=== PATIENT | female | born 1950 | race Caucasian/White ===

== ENCOUNTER → 2023-11-13 15:46 | Outpatient (REF) | payer MEDICARE, OTHER, SELFPAY ==
[2023-11-13 17:04] LABS: Blood Urea Nitrogen 17 mg/dl (7-17); eGFR > 60.00
== END ==
LOC: REG 15:46
PROVIDERS: ATTENDING PHYSICIAN Otolaryngology; FAMILY PHYSICIAN Family Medicine
DX: Z01.818 Encounter for other preprocedural examination (principal)
CPT/HCPCS: 36415; 82565; 84520

== ENCOUNTER → 2023-11-19 11:21 | Outpatient (REF) | payer MEDICARE, OTHER, SELFPAY | LOC: PAVMRI 11:21 | PROVIDERS: ATTENDING PHYSICIAN Otolaryngology; FAMILY PHYSICIAN Family Medicine | DX: R42 Dizziness and giddiness (principal) | CPT/HCPCS: 70553; A9575 ==

== ENCOUNTER 2024-04-30 11:51 | Emergency (ER) | payer MEDICARE, OTHER, SELFPAY ==
[2024-04-30 11:55] VITALS: BP 133/79
[2024-04-30 12:18] VITALS: BMI 24.5
--- NOTE | 2024-04-30 12:27 | ED.GENMED ---
History of Present Illness
General
Chief Complaint: Abdominal Pain
Source: patient
Exam Limitations: none
Time Seen by Provider: 04/30/24 12:17
Nursing documentation reviewed up to this point in time: agreed with
History of Present Illness
History of Present Illness:
73-year-old female with history hypertension, hyperlipidemia, diverticulitis presenting to the emergency department for evaluation of abdominal pain. Patient reports left lower quadrant abdominal pain for the past 8 days associated with generalized
bloating and diarrhea. Patient reports chills at home. No known fevers. Patient denies any nausea or vomiting. She has been adhering to a clear liquid diet over the past few days although pain continues to worsen. Patient denies any urinary
symptoms. Patient denies any hematochezia or melena. Patient denies any chest pain or shortness of breath.
Patient does have history of diverticulitis in the past and states this feels very similar. She has been seen by Dr. Jackson, GI.
Past History
Past History
ED Past Medical History: HTN and Other
ED Past Surgical History: Orthopedic (Cervical fusion)
Social History
Tobacco: Non-smoker
Alcohol: Occasional
Drug: None
Employment: Employed
Review of Systems
Review of Systems
Allergies reviewed?: Yes
All Other Systems: ROS reviewed and negative except as documented in HPI and ROS
Phy Exam
Physical Exam
Physical Exam:
Vitals: Patient's vital signs are stable. Afebrile
General: Patient is well appearing, no acute distress
Skin: Warm and dry, no rashes or lesions
Head: Normocephalic, atraumatic
Eyes: Sclera nonicteric. EOMs intact. No nystagmus.
Throat: Protecting airway
Neck: Normal ROM, no cervical spine tenderness, no meningismus
Cardiac: Regular rate and rhythm, no murmurs.
Pulm: Normal respiratory effort, no wheezes, rales, rhonchi heard on exam.
Abdomen: Abdomen soft. Diffuse abdominal tenderness, worse in left lower quadrant. No rebound tenderness or guarding. No CVA tenderness
Extremities: No evidence of cyanosis or edema. Great distal pulses
Neuro: AAOx3. No focal neurologic deficits
Psychiatric: Normal affect.
Course
Orders/Labs/Results
Orders:
Orders
04/30/24 12:47
0.9% Sodium Chloride 1000 ml [Nss] 1,000 ml IV BOLUS
04/30/24 12:48
CT Abd/Pel (IV only)-DH only Urgent
Comment: hx diverticulitis
Reason For Exam: LLQ pain, bloating, diarrhea
04/30/24 13:00
Complete Blood Count/With Diff Urgent
Comprehensive Metabolic Panel Urgent
Lipase Urgent
Urinalysis Reflex To Culture Urgent
Date Specimen was Collected: 04/30/24
Time Specimen was Collected: 12:59
04/30/24 15:47
LevoFLOXacin [Levaquin] 750 mg PO NOW STA
MetroNIDAZOLE [Flagyl] 500 mg PO NOW STA
Abnormal Lab Results
04/30/24
13:00
RBC 3.86 L 10^6/uL
(4.20-5.40)
MCH 33.2 H pg
(27.0-31.0)
Glucose 107 H mg/dl
(70-99)
Alkaline Phosphatase 145 H U/L
(38-126)
04/30/24 13:00
04/30/24 13:00
Vital Signs
Initial and Last Documented VS:
Initial Vital Signs
Temp Pulse Resp BP Pulse Ox
98.1 F 79 16 133/79 98
04/30/24 11:55 04/30/24 11:55 04/30/24 11:55 04/30/24 11:55 04/30/24 11:55
Last Documented Vital Signs
Temp Pulse Resp BP Pulse Ox
98.1 F 79 16 132/76 96
04/30/24 11:55 04/30/24 11:55 04/30/24 11:55 04/30/24 16:15 04/30/24 14:20
MDM/Problems Addressed
Differential Diagnosis Includes:
Not limited to: Diverticulitis, appendicitis, cholecystitis, UTI, pyelonephritis, kidney stone, etc.
MDM/Problems Addressed:
73-year-old female presenting with 8 days of lower abdominal discomfort and generalized bloating. Does have history of diverticulitis�states feels the same. Has had a few episodes of diarrhea, as well. Denies fevers, chills, nausea/vomiting,
urinary symptoms. Vital stable. Exam as above. Patient very well-appearing, conversational and nontoxic. She does have somewhat diffuse abdominal tenderness although worse in left lower quadrant. There is no rebound tenderness or guarding. No
CVA tenderness. cardio/pulmonary assessment unremarkable. Differential broad at this time other considerations include diverticulitis, appendicitis, gastritis, pyelonephritis, or UTI. Will check basic labs, lipase. Will check urinalysis. Will
obtain CT abdomen/pelvis. Patient denies any analgesia at this time.
Update: Into reassess patient at bedside. She remains comfortable and continues to decline analgesia. Labs noted. No leukocytosis. No other clinically significant abnormalities. Urine shows no evidence of infection. CT pending.
Update: CT report reviewed. There was findings of a pancolitis and mild acute diverticulitis. There is no evidence of abscess or perforation. There were a few incidental findings found most notably including a dilatation of the abdominal aorta
for which patient was made aware and given copy report to follow with primary care. Did offer patient admission for IV antibiotics versus discharge home on p.o. antibiotics. Patient would much prefer discharge home with p.o. antibiotics given
patient is tolerating p.o. intake, is afebrile, with no leukocytosis and is remained comfortable without pain management in the emergency department�feel trial of outpatient management with p.o. antibiotics is reasonable at this time. Patient
started on Levaquin/Flagyl for which she has taken before. Advised clear liquid diet followed by low fiber. Return precautions discussed with patient at length. She will return with any acute worsening/failure to improve. She will follow-up with
PCP/GI. Case discussed with attending physician.
Chronic conditions affecting care:
Diverticulosis
Acute Exacerbation and/or Progression of Chronic Illness:
Acute diverticulitis
*Radiology
Radiology exam reviewed: preliminary read by ED provider and radiology read reviewed
*Pulse Oximetry
Patient hypoxic: no
*EKG
Interpreted by ED Provider?: NA
*Tacker Elastic Band Interpretation
Rate: Tacker Elastic Band- N/A
*Critical Care Note
Total Time (30-74mins, 75-104mins- exclusive of procedures): Not Applicable
ED Attending Note
-
Portions of this chart may have been created with voice recognition software.� Occasional wrong word or��sound alike� substitutions may have occurred due to the inherent limitations of voice recognition software.
Discharge Plan
Departure
Patient Disposition: Home (Routine Discharge)
Date of Disposition: 04/30/24
Time of Disposition: 15:49
Patient with high blood pressure during this ER visit?: Yes
Condition: Good
Covid-19: Not Applicable
Discharge Problem:
Acute diverticulitis
Instructions: Clear Liquid Diet, Low Fiber Diet, Diverticulitis (DC), BLOOD PRESSURE
Prescriptions:
New
levofloxacin 750 mg tablet
750 mg PO DAILY 10 Days Qty: 10 0RF
metronidazole 500 mg tablet
500 mg PO TID 10 Days Qty: 30 0RF
No Action
Aspercreme With Lidocaine
1 applic topical PRN PRN (Reason: pain)
gabapentin 600 MG tablet
600 mg PO TID
rizatriptan [Maxalt] 10 MG tablet
10 mg PO PRN PRN (Reason: migraines)
Patient Comments:
7 weeks ago
acetaminophen [Tylenol Extra Strength] 500 MG tablet
500 mg PO BID PRN (Reason: pain)
sumatriptan succinate 6 MG/0.5 ML solution
6 mg SC PRN PRN (Reason: migraines)
Patient Comments:
7 weeks ago
lisinopril 10 MG tablet
10 mg PO DAILY
pravastatin 20 MG tablet
20 mg PO .QPM --
ezetimibe 10 MG tablet
10 mg PO QPM
Benefiber
2 tsp PO QPM
Bio-Freeze
1 applic topical PRN PRN (Reason: pain)
Butterbur Root Extract
1 tab PO DAILY
Calcium Vitamin D3
1 tab PO DAILY
Rosas Red
800 mg PO DAILY
hydrocodone-acetaminophen [[place]] 1 EACH tablet
1 ea PO Q6HPRN PRN (Reason: pain) Qty: 0 0RF
Rx Instructions:
Take 1 tablet four times a day, every 6 hours for pain
lorazepam 1 MG tablet
1 mg PO TIDPRN PRN (Reason: pain/spasms) Qty: 40 0RF
Referrals:
Beck Chase MD [Family Provider] - Follow up in 2-3 days
Activity Restrictions/Additional Instructions:
RETURN TO THE EMERGENCY DEPARTMENT WITH ANY FEVERS, CHILLS, WORSENING/PERSISTENT ABDOMINAL PAIN, INTRACTABLE NAUSEA/VOMITING, SIGNS OF SEVERE DEHYDRATION, WORSENING IN CURRENT SYMPTOMS, OR ANY OTHER CONCERNS
-As discussed�your CT scan did show evidence of diverticulitis today. A prescription for 2 antibiotics has been sent to your pharmacy. You should take these as directed for the next 10 days. You were given your first dose of both these
antibiotics today in the emergency department. As discussed�it is very important that you avoid any alcohol while taking metronidazole.
-Is important he stay well-hydrated. You should adhere to a clear liquid diet over the next few days and slowly advance to low fiber diet. You can take Tylenol as needed for any discomfort.
-There were a few incidental finding seen on your CT scan today. Please be sure that you follow-up with your primary care provider regarding these findings including the dilatation of your abdominal aorta which may require further monitoring.
-You should follow-up with your primary care provider in a few days to ensure that symptoms are improving
Monitor your symptoms very closely and return to the emergency department with any acute worsening/new symptoms or any signs of worsening infection.
Interventions
Interventions:
*Risk Screen - Suicide Last Done: 04/30/24 11:55
*General Assessment Last Done: 04/30/24 11:55
*Neglect/Abuse Screening Last Done: 04/30/24 11:55
*ED COVID-19 Vaccine History Last Done: 04/30/24 12:13
*Nursing Disposition Last Done: 04/30/24 16:19
WP-Yoxcds-Gsnegthnkn Assessment Last Done: 04/30/24 12:13
Discharge Date and Time
Discharge Date/Time: 04/30/24 16:20
Print Language: DJIBOUTIAN
[2024-04-30 13:02] VITALS: BP 103/53
[2024-04-30] MEDS: NSS 1000 IV (13:04)
[2024-04-30 13:14] LABS: % Basophils 0.4 % (0-2); % Eosinophils 1.8 % (0-6); % Immature Granulocytes 0.2 % (0-0.5); % Lymphocytes 25.6 % (20.5-51.1); % Monocytes 7.2 % (1.7-9.3); % Neutrophils 64.8 % (42.2-75.2); Absolute Eosinophils 0.1 10^3/uL (0-0.7); Absolute Lymphocytes 1.4 10^3/uL (1.2-3.4); Absolute Monocytes 0.4 10^3/uL (0.1-0.6); Absolute Neutrophils 3.5 10^3/uL (1.4-6.5); Hematocrit 37.4 % (37.0-47.0); Hemoglobin 12.8 g/dL (12.0-16.0); Mean Corp Hgb Conc. 34.2 g/dL (33.0-37.0); Mean Corpuscular Hgb 33.2 pg (27.0-31.0); Mean Corpuscular Volume 96.9 fL (81.0-99.0); Mean Platelet Volume 9.4 fL (7.4-10.4); Nucleated Red Blood Cells % 0 %; Platelet Count 296 10^3/uL (130-400); Red Blood Cell Count 3.86 10^6/uL (4.20-5.40); Red Cell Dist. Width 12.5 % (11.5-14.5); White Blood Cell Count 5.4 10^3/uL (4.8-10.8)
[2024-04-30 13:18] LABS: Urine Albumin Negative (Neg - Trace); Urine Bilirubin Negative (Negative); Urine Character Clear (Clear); Urine Color Yellow; Urine Glucose Negative (Negative); Urine Ketone Negative (Negative); Urine Leukocyte Negative (Negative); Urine Nitrite Negative (Negative); Urine Occult Blood Negative (Negative); Urine Urobilinogen Negative (Neg - 1+); Urine pH 6.5 (5.0-9.0)
[2024-04-30 13:31] LABS: ALT (SGPT) 25 U/L (0-35); AST (SGOT) 29 U/L (14-36); Albumin 4.5 g/dl (3.5-5.0); Alkaline Phosphatase 145 U/L (38-126); Blood Urea Nitrogen 11 mg/dl (7-17); Calcium 9.2 mg/dl (8.4-10.2); Carbon Dioxide 24 mmol/L (22-30); Chloride 102 mmol/L (98-107); Estimated Creatinine Clearance 61 ml/min; Glucose 107 mg/dl (70-99); Lipase 118 U/L (23-300); Potassium 4.6 mmol/L (3.5-5.1); Sodium 137 mmol/L (135-145); Total Bilirubin 0.3 mg/dl (0.2-1.3); Total Protein 7.1 g/dl (6.3-8.2); eGFR > 60.00
[2024-04-30 14:07] VITALS: BP 129/63
[2024-04-30 15:21] VITALS: BP 122/103
[2024-04-30 16:15] VITALS: BP 132/76
[2024-04-30] MEDS: LEVAQUIN 750 MG PO (16:15)
[2024-04-30] MEDS: FLAGYL 500 MG PO (16:15)
== END 2024-04-30 16:20 | disposition home or self-care (01) ==
LOC: EMR 11:51
PROVIDERS: Physician Assistant; EMERGENCY PHYSICIAN Student in an Organized Health Care Education/Training Program; FAMILY PHYSICIAN Family Medicine
DX: K57.32 Diverticulitis of large intestine without perforation or abscess without bleeding (principal); I10 Essential (primary) hypertension; E78.5 Hyperlipidemia, unspecified; M43.22 Fusion of spine, cervical region; Z88.6 Allergy status to analgesic agent; Z88.1 Allergy status to other antibiotic agents; Z88.8 Allergy status to other drugs, medicaments and biological substances; Z91.018 Allergy to other foods
CPT/HCPCS: 99284; 96360; 74177; 80053; 81003; 83690; 85025; Q9967

== ENCOUNTER 2024-12-28 06:29 | Day surgery (SDC) | payer MEDICARE, OTHER, SELFPAY | END 2024-12-28 09:07 | disposition home or self-care (01) | LOC: GI 06:29 | PROVIDERS: ATTENDING PHYSICIAN Internal Medicine; FAMILY PHYSICIAN Nurse Practitioner Family | DX: K57.30 Diverticulosis of large intestine without perforation or abscess without bleeding (principal); K64.9 Unspecified hemorrhoids; Z01.818 Encounter for other preprocedural examination; D17.5 Benign lipomatous neoplasm of intra-abdominal organs | CPT/HCPCS: 45381 ==